=== PATIENT | male | born 1990 | race Caucasian/White ===

== ENCOUNTER 2017-01-04 00:01 | Emergency (ER) | payer SELFPAY ==
[2017-01-04] MEDS ORDERED: methylPREDNISolone Sod Succ/PF 125 MG/2 ML VIAL ONE (00:21)
== END 2017-01-04 00:37 | disposition home or self-care (01) ==
LOC: BURERS 00:01
DX: L23.7 Allergic contact dermatitis due to plants, except food (principal); F17.210 Nicotine dependence, cigarettes, uncomplicated; F90.9 Attention-deficit hyperactivity disorder, unspecified type
CPT/HCPCS: 96372; J2930

== ENCOUNTER 2017-09-01 20:31 | Emergency (ER) | payer BC, SELFPAY ==
[2017-09-01] MEDS ORDERED: Ibuprofen 200 MG TAB ONE (21:16)
--- NOTE | 2017-09-01 23:15 | RAD ---
LEFT ELBOW FOUR VIEWS: Date: 09-01-17 FINDINGS: No fracture or joint abnormality is seen. There is no sign of joint fluid. The articular surfaces are smooth. IMPRESSION: No acute findings. POS: HOME
== END 2017-09-01 21:27 | disposition home or self-care (01) ==
LOC: BURERS 20:31
DX: M77.9 Enthesopathy, unspecified (principal); F17.210 Nicotine dependence, cigarettes, uncomplicated; F90.9 Attention-deficit hyperactivity disorder, unspecified type

== ENCOUNTER 2018-01-07 09:57 | Emergency (ER) | payer BC ==
[2018-01-07 10:43] LABS: ALT (SGPT) 19 U/L (8-55); AST (SGOT) 12 U/L (5-34); Albumin 4.4 g/dL (3.5-5.0); Alkaline Phosphatase 81 U/L (40-150); Anion Gap 14 mmol/L (10-20); BUN (Urea Nitrogen) 13 mg/dL (8.9-20.6); Bilirubin, Total 0.5 mg/dL (0.2-1.2); Calc. Creatinine Clearance 0 mL/min (70-130); Calcium 9.1 mg/dL (7.8-10.44); Carbon Dioxide 23 mmol/L (22-29); Chloride 103 mmol/L (98-107); Estimated GFR-MDRD Greater than 90; Glucose 123 mg/dL (70-105); Lipase 8 U/L (8-78); Protein, Total 7.4 g/dL (6.0-8.3); Sodium 136 mmol/L (136-145)
[2018-01-07] MEDS ORDERED: Ondansetron HCl/PF 4 MG/2 ML Vial ONE (10:45)
[2018-01-07 10:50] LABS: Hemoglobin 15.4 g/dL (14.0-18.0); Mean Corpuscular HGB CONC 36.2 g/dL (32.0-36.0); Mean Corpuscular Hemoglobin 31.4 pg (27.0-31.0); Mean Corpuscular Volume 86.6 fL (80.0-94.0); Platelet Count 199 thou/uL (130-400); White Blood Cell (WBC) Count 18.8 thou/uL (4.8-10.8)
[2018-01-07 10:51] LABS: Mean Platelet Volume 5.2 fL (7.4-10.4)
[2018-01-07] MEDS ORDERED: cefTRIAXone\\ROCEPHIN 1 GM VIAL ONE (10:52)
[2018-01-07 11:06] LABS: Band 8 % (5-11); Lymphocytes 9 % (21-51); MDiff Complete? YES; Neutrophil 82 % (42-75)
[2018-01-07 11:07] LABS: Monocytes 1 % (0-10)
[2018-01-07 11:21] LABS: Bilirubin Negative (Negative); Clarity Clear (Clear); Glucose, Urine (Dipstick) Negative (Negative); Leukocyte Negative (Negative); Nitrite Negative (Negative); Protein, Urine (Dipstick) Trace mg/dL (Neg-Trace)
[2018-01-07 11:22] LABS: Blood, Urine Negative (Negative)
--- NOTE | 2018-01-07 17:05 | RAD ---
CHEST TWO VIEWS 01/07/18 The heart is normal in size and the lungs are clear. No lobar infiltrates or effusions were seen to s uggest pneumonia. The mediastinum appears normal and the trachea is midline. IMPRESSION: No acute thoracic findings. POS: HOME
== END 2018-01-07 12:03 | disposition home or self-care (01) ==
LOC: BURERS 09:57
DX: J18.9 Pneumonia, unspecified organism (principal); F90.9 Attention-deficit hyperactivity disorder, unspecified type; F17.210 Nicotine dependence, cigarettes, uncomplicated
CPT/HCPCS: 36415; 71046; 80053; 81003; 83605; 83690; 85025; 87040; 94760; 96365; 96375; J0696; J2405

== ENCOUNTER 2019-02-08 19:41 | Emergency (ER) | payer BC, OTHER ==
[2019-02-08] MEDS ORDERED: AMOXicillin 250 MG CAP ONE (19:54)
== END 2019-02-08 19:58 | disposition home or self-care (01) ==
LOC: BURERS 19:41
DX: J20.9 Acute bronchitis, unspecified (principal); F17.210 Nicotine dependence, cigarettes, uncomplicated; F90.9 Attention-deficit hyperactivity disorder, unspecified type
CPT/HCPCS: 99283

== ENCOUNTER 2020-02-18 21:10 | Emergency (ER) | payer OTHER ==
[2020-02-18] MEDS ORDERED: Ibuprofen 200 MG TAB ONE (21:35)
[2020-02-18] MEDS ORDERED: Lidocaine 1% PF 5 ML VIAL ONE (21:35)
[2020-02-18] MEDS ORDERED: cefTRIAXone\\ROCEPHIN 1 GM VIAL ONE (21:35)
[2020-02-18] MEDS ORDERED: AMOXicillin 250 MG CAP ONE (21:35)
== END 2020-02-18 21:53 | disposition home or self-care (01) ==
LOC: BURERS 21:10
DX: K04.7 Periapical abscess without sinus (principal); F90.9 Attention-deficit hyperactivity disorder, unspecified type; F17.210 Nicotine dependence, cigarettes, uncomplicated
CPT/HCPCS: 96372; 99282; J0696

== ENCOUNTER 2022-06-12 16:30 | Outpatient (CLI) | payer OTHER | END 2022-06-12 16:31 | disposition home or self-care (01) | LOC: BURRAD 16:30 | PROVIDERS: ATTEND Family Medicine | DX: S69.91XA Unspecified injury of right wrist, hand and finger(s), initial encounter (principal) ==

== ENCOUNTER 2022-12-10 11:12 | Outpatient (CLI) | payer OTHER | END 2022-12-10 11:13 | disposition home or self-care (01) | LOC: BURRAD 11:12 | PROVIDERS: ATTEND Family Medicine | DX: B34.9 Viral infection, unspecified (principal) | CPT/HCPCS: 71046 ==